=== PATIENT | male | born 1995 | race Caucasian/White ===

== ENCOUNTER 2017-03-25 17:09 | Emergency (ER) | payer MEDICAID ==
[~2017-03-25] VITALS: Ht 172.7 cm; Wt 81.6 kg
[2017-03-25 17:21] VITALS: Ht 172.7 cm; Wt 81.6 kg
[2017-03-25 19:31] LABS: PLATELET COUNT 277 x10^3mcL (130-400); RED CELL DISTRIBUTION WIDTH 13.1 % (11.5-14.5)
[2017-03-25 19:37] LABS: BASOPHIL % 0 % (0-2)
[2017-03-25 19:39] LABS: CALCIUM 9.6 mg/dL (8.5-10.1); CARBON DIOXIDE 24.6 mmol/L (21-32); CHLORIDE SERUM 103 mmol/L (98-107); CREATININE SERUM 0.8 mg/dL (0.7-1.3); GFR1 > 60 mL/min; GLUCOSE SERUM 130 mg/dL (74-106); POTASSIUM SERUM 3.5 mmol/L (3.5-5.1); SODIUM SERUM 139 mmol/L (136-145)
[2017-03-25 19:43] LABS: ALBUMIN 4.6 g/dL (3.4-5.0); ALKALINE PHOSPHATASE 75 U/L (46-116); ALT/SGPT 23 U/L (16-63); AMYLASE 86 U/L (25-115); AST/SGOT 19 U/L (15-37); BILIRUBIN TOTAL 0.5 mg/dL (0.20-1.00); LIPASE 105 IU/L (73-393)
[2017-03-25 19:44] LABS: TOTAL PROTEIN, SERUM 8.4 g/dL (6.4-8.2)
[2017-03-25 20:01] LABS: UA SPECIFIC GRAVITY 1.015 (1.005-1.035); microscopic required? YES; urine erythrocyte NEGATIVE (NEGATIVE)
[2017-03-25 20:10] LABS: AMPHETAMINE QUAL UR NONE DETECTED (NEG <=1000)
[2017-03-25 23:35] VITALS: BP 116/71
== END 2017-03-25 23:35 | disposition home or self-care (01) ==
LOC: ED 17:09
PROVIDERS: Emergency Medicine
DX: R11.10 Vomiting, unspecified (principal); R10.84 Generalized abdominal pain; F12.90 Cannabis use, unspecified, uncomplicated; F17.210 Nicotine dependence, cigarettes, uncomplicated; D72.829 Elevated white blood cell count, unspecified
CPT/HCPCS: 83880; J1630; J2060; J2405; J3490; J7030

== ENCOUNTER 2017-04-14 07:25 | Emergency (ER) | payer MEDICAID ==
[~2017-04-14] VITALS: Ht 172.7 cm; Wt 86.2 kg
[2017-04-14 07:29] VITALS: Ht 172.7 cm; Wt 86.2 kg
[2017-04-14 08:28] LABS: BASOPHIL % 0.5 % (0-2); PLATELET COUNT 240 x10^3mcL (130-400); RED CELL DISTRIBUTION WIDTH 13.4 % (11.5-14.5)
[2017-04-14 09:00] LABS: CALCIUM 9.6 mg/dL (8.5-10.1); CARBON DIOXIDE 27.5 mmol/L (21-32); CHLORIDE SERUM 103 mmol/L (98-107); GFR1 > 60 mL/min; GLUCOSE SERUM 115 mg/dL (74-106); POTASSIUM SERUM 4.4 mmol/L (3.5-5.1); SODIUM SERUM 141 mmol/L (136-145)
[2017-04-14 09:09] LABS: ALBUMIN 4.8 g/dL (3.4-5.0); ALKALINE PHOSPHATASE 68 U/L (46-116); ALT/SGPT 22 U/L (16-63); AST/SGOT 15 U/L (15-37); BILIRUBIN TOTAL 0.5 mg/dL (0.20-1.00); LIPASE 576 IU/L (73-393); TOTAL PROTEIN, SERUM 8.2 g/dL (6.4-8.2)
[2017-04-14 11:55] VITALS: BP 149/95
== END 2017-04-14 11:55 | disposition home or self-care (01) ==
LOC: ED 07:25
PROVIDERS: Emergency Medicine Emergency Medical Services
DX: K86.0 Alcohol-induced chronic pancreatitis (principal); K21.9 Gastro-esophageal reflux disease without esophagitis
CPT/HCPCS: J2270; J2405; J3490; J7030

== ENCOUNTER 2017-06-28 21:38 | Emergency (ER) | payer MEDICAID ==
[~2017-06-28] VITALS: Ht 170.2 cm; Wt 92.1 kg
[2017-06-28 21:40] VITALS: Ht 170.2 cm; Wt 92.1 kg
[2017-06-28 22:34] LABS: PLATELET COUNT 246 x10^3mcL (130-400); RED CELL DISTRIBUTION WIDTH 13.1 % (11.5-14.5)
[2017-06-28 22:37] LABS: CALCIUM 9.1 mg/dL (8.5-10.1); CARBON DIOXIDE 26.3 mmol/L (21-32); CHLORIDE SERUM 101 mmol/L (98-107); GFR1 > 60 mL/min; GLUCOSE SERUM 135 mg/dL (74-106); POTASSIUM SERUM 3.2 mmol/L (3.5-5.1); SODIUM SERUM 140 mmol/L (136-145)
[2017-06-28 22:40] LABS: BASOPHIL % 0 % (0-2)
[2017-06-28 22:41] LABS: ALBUMIN 4.2 g/dL (3.4-5.0); ALKALINE PHOSPHATASE 63 U/L (46-116); ALT/SGPT 21 U/L (16-63); AMYLASE 114 U/L (25-115); AST/SGOT 20 U/L (15-37); BILIRUBIN TOTAL 0.44 mg/dL (0.20-1.00); LIPASE 131 IU/L (73-393); TOTAL PROTEIN, SERUM 7.8 g/dL (6.4-8.2)
[2017-06-28 23:09] LABS: UA SPECIFIC GRAVITY 1.015 (1.005-1.035); microscopic required? YES; urine erythrocyte NEGATIVE (NEGATIVE)
[2017-06-28 23:29] LABS: AMPHETAMINE QUAL UR NONE DETECTED (NEG <=1000)
[2017-06-29 00:34] VITALS: BP 148/92
== END 2017-06-29 00:34 | disposition home or self-care (01) ==
LOC: ED 21:38
PROVIDERS: Emergency Medicine
DX: R10.84 Generalized abdominal pain (principal); R11.10 Vomiting, unspecified; D72.829 Elevated white blood cell count, unspecified; F12.90 Cannabis use, unspecified, uncomplicated; R11.2 Nausea with vomiting, unspecified
CPT/HCPCS: G0480; J1630; J2060; J7030

== ENCOUNTER 2017-10-04 21:09 | Emergency (ER) | payer OTHER ==
[~2017-10-04] VITALS: Ht 175.3 cm; Wt 90.3 kg
[2017-10-04 21:39] VITALS: Ht 175.3 cm; Wt 90.3 kg
[2017-10-04 22:46] LABS: BASOPHIL % 0.3 % (0-2); PLATELET COUNT 272 x10^3mcL (130-400); RED CELL DISTRIBUTION WIDTH 13.4 % (11.5-14.5)
[2017-10-04 22:57] LABS: CALCIUM 8.9 mg/dL (8.5-10.1); CARBON DIOXIDE 26.8 mmol/L (21-32); CHLORIDE SERUM 101 mmol/L (98-107); GFR1 > 60 mL/min; GLUCOSE SERUM 116 mg/dL (74-106); POTASSIUM SERUM 3.1 mmol/L (3.5-5.1); SODIUM SERUM 139 mmol/L (136-145)
[2017-10-04 23:01] LABS: ALBUMIN 4.7 g/dL (3.4-5.0); ALKALINE PHOSPHATASE 70 U/L (46-116); ALT/SGPT 22 U/L (16-63); AST/SGOT 21 U/L (15-37); BILIRUBIN TOTAL 1.2 mg/dL (0.20-1.00); LIPASE 85 IU/L (73-393)
[2017-10-04 23:02] LABS: TOTAL PROTEIN, SERUM 8.4 g/dL (6.4-8.2)
[2017-10-05 00:20] LABS: microscopic required? YES; urine erythrocyte TRACE (NEGATIVE)
[2017-10-05 02:18] VITALS: BP 158/67
== END 2017-10-05 02:27 | disposition home or self-care (01) ==
LOC: ED 21:09
PROVIDERS: Emergency Medicine
DX: T67.5XXA Heat exhaustion, unspecified, initial encounter (principal); X58.XXXA Exposure to other specified factors, initial encounter; Y93.89 Activity, other specified; Y92.89 Other specified places as the place of occurrence of the external cause; Y99.8 Other external cause status
CPT/HCPCS: J2405; J3475; J3490; J7030; Q0162

== ENCOUNTER 2017-11-05 16:33 | Emergency (ER) | payer OTHER ==
[~2017-11-05] VITALS: Ht 175.3 cm; Wt 89.8 kg
[2017-11-05 18:10] LABS: BASOPHIL % 0.2 % (0-2); PLATELET COUNT 277 x10^3mcL (130-400)
[2017-11-05 18:23] LABS: ALKALINE PHOSPHATASE 67 U/L (46-116); ALT/SGPT 12 U/L (16-63); AST/SGOT 18 U/L (15-37); BILIRUBIN TOTAL 1.17 mg/dL (0.20-1.00); CALCIUM 9.7 mg/dL (8.5-10.1); CARBON DIOXIDE 25.4 mmol/L (21-32); CHLORIDE SERUM 98 mmol/L (98-107); CREATININE SERUM 1.1 mg/dL (0.7-1.3); GFR1 > 60 mL/min; GLUCOSE SERUM 107 mg/dL (74-106); LIPASE 90 IU/L (73-393); SODIUM SERUM 136 mmol/L (136-145)
[2017-11-05 18:24] LABS: TOTAL PROTEIN, SERUM 8.7 g/dL (6.4-8.2)
[2017-11-05 18:26] LABS: POTASSIUM SERUM 2.9 mmol/L (3.5-5.1)
[2017-11-05 21:29] VITALS: BP 146/54
== END 2017-11-05 21:29 | disposition home or self-care (01) ==
LOC: ED 16:33
PROVIDERS: Emergency Medicine
DX: E87.6 Hypokalemia (principal); K29.70 Gastritis, unspecified, without bleeding; R03.0 Elevated blood-pressure reading, without diagnosis of hypertension; F12.929 Cannabis use, unspecified with intoxication, unspecified
CPT/HCPCS: J1200; J1630; J2765; J3475; J3480; J7030

== ENCOUNTER 2018-01-28 18:29 | Emergency (ER) | payer OTHER ==
[~2018-01-28] VITALS: Ht 175.3 cm; Wt 93.4 kg
[2018-01-28 18:34] VITALS: Ht 175.3 cm; Wt 93.4 kg
[2018-01-28 21:13] VITALS: BP 135/76
== END 2018-01-28 21:13 | disposition home or self-care (01) ==
LOC: ED 18:29
DX: R10.13 Epigastric pain (principal); R11.2 Nausea with vomiting, unspecified; K21.9 Gastro-esophageal reflux disease without esophagitis; F12.90 Cannabis use, unspecified, uncomplicated
CPT/HCPCS: J1885; Q0162

== ENCOUNTER 2018-03-02 20:40 | Emergency (ER) | payer OTHER ==
[2018-03-02 22:09] LABS: BASOPHIL % 0.1 % (0-2); PLATELET COUNT 282 x10^3mcL (130-400); RED CELL DISTRIBUTION WIDTH 13.6 % (11.5-14.5)
[2018-03-02 22:19] LABS: CALCIUM 9.3 mg/dL (8.5-10.1); CARBON DIOXIDE 29.1 mmol/L (21-32); CHLORIDE SERUM 98 mmol/L (98-107); CREATININE SERUM 1.1 mg/dL (0.7-1.3); GFR1 > 60 mL/min; GLUCOSE SERUM 108 mg/dL (74-106); POTASSIUM SERUM 3.5 mmol/L (3.5-5.1); SODIUM SERUM 137 mmol/L (136-145)
[2018-03-02 22:23] LABS: ALBUMIN 4.5 g/dL (3.4-5.0); ALKALINE PHOSPHATASE 62 U/L (46-116); ALT/SGPT 20 U/L (16-63); AMYLASE 104 U/L (25-115); AST/SGOT 18 U/L (15-37); BILIRUBIN TOTAL 0.7 mg/dL (0.20-1.00); LIPASE 101 IU/L (73-393)
[2018-03-02 22:27] LABS: TOTAL PROTEIN, SERUM 8.4 g/dL (6.4-8.2)
[2018-03-03 01:10] VITALS: BP 150/92
== END 2018-03-03 01:10 | disposition home or self-care (01) ==
LOC: ED 20:40
PROVIDERS: Emergency Medicine
DX: G43.A1 Cyclical vomiting, in migraine, intractable (principal); R10.13 Epigastric pain
CPT/HCPCS: C9113; J2405; J7030

== ENCOUNTER 2018-05-02 16:44 | Emergency (ER) | payer OTHER ==
[~2018-05-02] VITALS: Ht 175.3 cm; Wt 95.3 kg
[2018-05-02 17:24] VITALS: Ht 175.3 cm; Wt 95.3 kg
[2018-05-02 20:34] LABS: CALCIUM 10.1 mg/dL (8.5-10.1); CARBON DIOXIDE 22.8 mmol/L (21-32); CHLORIDE SERUM 97 mmol/L (98-107); GFR1 > 60 mL/min; GLUCOSE SERUM 118 mg/dL (74-106); POTASSIUM SERUM 3.7 mmol/L (3.5-5.1); SODIUM SERUM 134 mmol/L (136-145)
[2018-05-02 20:39] LABS: ALBUMIN 4.8 g/dL (3.4-5.0); ALKALINE PHOSPHATASE 73 U/L (46-116); ALT/SGPT 18 U/L (16-63); AMYLASE 104 U/L (25-115); AST/SGOT 19 U/L (15-37); BILIRUBIN TOTAL 0.6 mg/dL (0.20-1.00); LIPASE 117 IU/L (73-393)
[2018-05-02 20:42] LABS: TOTAL PROTEIN, SERUM 8.9 g/dL (6.4-8.2)
[2018-05-02 20:48] LABS: BASOPHIL % 0.6 % (0-2); PLATELET COUNT 203 x10^3mcL (130-400); RED CELL DISTRIBUTION WIDTH 13.5 % (11.5-14.5)
[2018-05-02 23:33] VITALS: BP 157/71
== END 2018-05-02 23:33 | disposition home or self-care (01) ==
LOC: ED 16:44
PROVIDERS: Emergency Medicine
DX: A08.4 Viral intestinal infection, unspecified (principal)
CPT/HCPCS: J1885; J2405; J7030

== ENCOUNTER 2018-06-17 07:56 | Emergency (ER) | payer OTHER ==
[~2018-06-17] VITALS: Ht 175.3 cm; Wt 89.8 kg
[2018-06-17 08:40] LABS: BASOPHIL % 0.3 % (0-2); PLATELET COUNT 196 x10^3mcL (130-400); RED CELL DISTRIBUTION WIDTH 13.9 % (11.5-14.5)
[2018-06-17 08:43] LABS: CALCIUM 9.1 mg/dL (8.5-10.1); CARBON DIOXIDE 25.6 mmol/L (21-32); CHLORIDE SERUM 98 mmol/L (98-107); CREATININE SERUM 1.1 mg/dL (0.7-1.3); GFR1 > 60 mL/min; GLUCOSE SERUM 110 mg/dL (74-106); POTASSIUM SERUM 3.1 mmol/L (3.5-5.1); SODIUM SERUM 136 mmol/L (136-145)
[2018-06-17 08:47] LABS: ALBUMIN 4.6 g/dL (3.4-5.0); ALKALINE PHOSPHATASE 63 U/L (46-116); ALT/SGPT 36 U/L (16-63); AMYLASE 73 U/L (25-115); AST/SGOT 96 U/L (15-37); LIPASE 91 IU/L (73-393)
[2018-06-17 08:48] LABS: TOTAL PROTEIN, SERUM 8.4 g/dL (6.4-8.2)
[2018-06-17 10:21] VITALS: BP 171/60
== END 2018-06-17 10:21 | disposition home or self-care (01) ==
LOC: ED 07:56
PROVIDERS: Specialist
DX: R10.13 Epigastric pain (principal); E87.6 Hypokalemia; R11.2 Nausea with vomiting, unspecified; K21.9 Gastro-esophageal reflux disease without esophagitis
CPT/HCPCS: J2405; J7030

== ENCOUNTER 2018-09-15 18:15 | Emergency (ER) | payer OTHER ==
[~2018-09-15] VITALS: Ht 180.3 cm; Wt 88.0 kg
[2018-09-15 18:20] VITALS: Ht 180.3 cm; Wt 88.0 kg
[2018-09-15 18:54] LABS: BASOPHIL % 0.1 % (0-2); PLATELET COUNT 304 x10^3mcL (130-400); RED CELL DISTRIBUTION WIDTH 13.7 % (11.5-14.5)
[2018-09-15 19:09] LABS: CALCIUM 10.1 mg/dL (8.5-10.1); CARBON DIOXIDE 28.4 mmol/L (21-32); CHLORIDE SERUM 102 mmol/L (98-107); GFR1 > 60 mL/min; GLUCOSE SERUM 106 mg/dL (74-106); POTASSIUM SERUM 3.7 mmol/L (3.5-5.1); SODIUM SERUM 143 mmol/L (136-145)
[2018-09-15 19:16] LABS: ALBUMIN 4.6 g/dL (3.4-5.0); ALKALINE PHOSPHATASE 67 U/L (46-116); ALT/SGPT 26 U/L (16-63); AST/SGOT 9 U/L (15-37); BILIRUBIN TOTAL 1.02 mg/dL (0.20-1.00); LIPASE 204 IU/L (73-393); TOTAL PROTEIN, SERUM 8.1 g/dL (6.4-8.2)
[2018-09-15 20:03] VITALS: BP 126/80
[2018-09-15 20:10] LABS: AMPHETAMINE QUAL UR NONE DETECTED (See below)
== END 2018-09-15 20:03 | disposition home or self-care (01) ==
LOC: ED 18:15
DX: F12.188 Cannabis abuse with other cannabis-induced disorder (principal); F17.200 Nicotine dependence, unspecified, uncomplicated; K21.9 Gastro-esophageal reflux disease without esophagitis
CPT/HCPCS: 36415; 99406

== ENCOUNTER 2019-06-04 17:51 | Emergency (ER) | payer OTHER ==
[~2019-06-04] VITALS: Ht 175.3 cm; Wt 93.9 kg
[2019-06-04 17:54] VITALS: Ht 175.3 cm; Wt 93.9 kg
[2019-06-04 18:49] LABS: BASOPHIL % 0.1 % (0-2); PLATELET COUNT 305 x10^3mcL (130-400)
[2019-06-04 18:55] LABS: CALCIUM 9.7 mg/dL (8.5-10.1); CARBON DIOXIDE 26.6 mmol/L (21-32); CHLORIDE SERUM 102 mmol/L (98-107); GFR1 > 60 mL/min; GLUCOSE SERUM 149 mg/dL (74-106); POTASSIUM SERUM 4.2 mmol/L (3.5-5.1); SODIUM SERUM 140 mmol/L (136-145)
[2019-06-04 19:00] LABS: ALBUMIN 4.9 g/dL (3.4-5.0); ALKALINE PHOSPHATASE 69 U/L (46-116); ALT/SGPT 22 U/L (16-63); AST/SGOT 14 U/L (15-37); BILIRUBIN TOTAL 0.7 mg/dL (0.20-1.00); LIPASE 82 IU/L (73-393)
[2019-06-04 20:47] VITALS: BP 145/84
== END 2019-06-04 20:47 | disposition home or self-care (01) ==
LOC: ED 17:51
PROVIDERS: Emergency Medicine
DX: F12.188 Cannabis abuse with other cannabis-induced disorder (principal); K21.9 Gastro-esophageal reflux disease without esophagitis
CPT/HCPCS: J0780; J7030

== ENCOUNTER 2019-09-13 18:11 | Emergency (ER) | payer OTHER ==
[~2019-09-13] VITALS: Ht 175.3 cm; Wt 89.9 kg
[2019-09-13 18:44] VITALS: Ht 175.3 cm; Wt 89.9 kg
[2019-09-13 19:43] LABS: ALBUMIN 4.7 g/dL (3.4-5.0); ALKALINE PHOSPHATASE 61 U/L (46-116); ALT/SGPT 24 U/L (16-63); AST/SGOT 21 U/L (15-37); BILIRUBIN TOTAL 0.6 mg/dL (0.20-1.00); CALCIUM 9.6 mg/dL (8.5-10.1); CARBON DIOXIDE 28.4 mmol/L (21-32); CHLORIDE SERUM 98 mmol/L (98-107); GFR1 > 60 mL/min; GLUCOSE SERUM 123 mg/dL (74-106); LIPASE 96 IU/L (73-393); POTASSIUM SERUM 3.8 mmol/L (3.5-5.1); SODIUM SERUM 138 mmol/L (136-145)
[2019-09-13 19:44] LABS: TOTAL PROTEIN, SERUM 8.5 g/dL (6.4-8.2)
[2019-09-13 19:45] LABS: BASOPHIL % 0 % (0-2); PLATELET COUNT 287 x10^3mcL (130-400); RED CELL DISTRIBUTION WIDTH 13.9 % (11.5-14.5)
[2019-09-13 21:20] VITALS: BP 138/89
== END 2019-09-13 21:20 | disposition home or self-care (01) ==
LOC: ED 18:11
PROVIDERS: Emergency Medicine
DX: R10.13 Epigastric pain (principal); R10.11 Right upper quadrant pain; R19.7 Diarrhea, unspecified; R11.10 Vomiting, unspecified; K21.9 Gastro-esophageal reflux disease without esophagitis
CPT/HCPCS: 36415; Q0092; Q0162

== ENCOUNTER 2019-11-13 13:45 | Emergency (ER) | payer OTHER ==
[~2019-11-13] VITALS: Ht 172.7 cm; Wt 95.3 kg
[2019-11-13 13:49] VITALS: Ht 172.7 cm; Wt 95.3 kg
[2019-11-13 14:21] LABS: BASOPHIL % 0.2 % (0-2); PLATELET COUNT 272 x10^3mcL (130-400); RED CELL DISTRIBUTION WIDTH 13.5 % (11.5-14.5)
[2019-11-13 14:43] LABS: CALCIUM 9.7 mg/dL (8.5-10.1); CARBON DIOXIDE 28.2 mmol/L (21-32); CHLORIDE SERUM 96 mmol/L (98-107); GFR1 > 60 mL/min; GLUCOSE SERUM 102 mg/dL (74-106); POTASSIUM SERUM 3.3 mmol/L (3.5-5.1); SODIUM SERUM 135 mmol/L (136-145)
[2019-11-13 15:10] VITALS: BP 126/96
[2019-11-13 15:17] LABS: ALBUMIN 4.8 g/dL (3.4-5.0); ALKALINE PHOSPHATASE 56 U/L (46-116); ALT/SGPT 21 U/L (16-63); AST/SGOT 22 U/L (15-37); BILIRUBIN TOTAL 0.9 mg/dL (0.20-1.00)
[2019-11-13 15:18] LABS: TOTAL PROTEIN, SERUM 8.7 g/dL (6.4-8.2)
== END 2019-11-13 15:10 | disposition home or self-care (01) ==
LOC: ED 13:45
PROVIDERS: Emergency Medicine
DX: T67.5XXA Heat exhaustion, unspecified, initial encounter (principal); K21.9 Gastro-esophageal reflux disease without esophagitis; X58.XXXA Exposure to other specified factors, initial encounter; Y93.89 Activity, other specified; Y92.89 Other specified places as the place of occurrence of the external cause; Y99.8 Other external cause status
CPT/HCPCS: J2405; J7030

== ENCOUNTER 2019-11-16 15:24 | Emergency (ER) | payer OTHER ==
[~2019-11-16] VITALS: Ht 177.8 cm; Wt 88.5 kg
[2019-11-16 15:43] VITALS: Ht 177.8 cm; Wt 88.5 kg
[2019-11-16 16:41] LABS: BASOPHIL % 0.1 % (0-2); PLATELET COUNT 263 x10^3mcL (130-400); RED CELL DISTRIBUTION WIDTH 13.2 % (11.5-14.5)
[2019-11-16 16:43] LABS: CALCIUM 9.8 mg/dL (8.5-10.1); CARBON DIOXIDE 27.8 mmol/L (21-32); CHLORIDE SERUM 99 mmol/L (98-107); GFR1 > 60 mL/min; GLUCOSE SERUM 106 mg/dL (74-106); POTASSIUM SERUM 3.7 mmol/L (3.5-5.1); SODIUM SERUM 137 mmol/L (136-145)
[2019-11-16 16:47] LABS: ALBUMIN 4.8 g/dL (3.4-5.0); ALKALINE PHOSPHATASE 56 U/L (46-116); ALT/SGPT 21 U/L (16-63); AST/SGOT 24 U/L (15-37); BILIRUBIN TOTAL 1.1 mg/dL (0.20-1.00)
[2019-11-16 16:57] LABS: TOTAL PROTEIN, SERUM 8.5 g/dL (6.4-8.2)
[2019-11-16 18:19] LABS: UA SPECIFIC GRAVITY 1.025 (1.005-1.035); microscopic required? YES; urine erythrocyte 3+ (NEGATIVE)
[2019-11-16 19:05] VITALS: BP 121/70
== END 2019-11-16 19:05 | disposition home or self-care (01) ==
LOC: ED 15:24
PROVIDERS: Emergency Medicine
DX: K29.70 Gastritis, unspecified, without bleeding (principal); N39.0 Urinary tract infection, site not specified; F12.188 Cannabis abuse with other cannabis-induced disorder; K21.9 Gastro-esophageal reflux disease without esophagitis
CPT/HCPCS: 87491; 87591; J1630; J2405; J3490; J7030

== ENCOUNTER 2019-12-23 13:31 | Emergency (ER) | payer SELFPAY ==
[~2019-12-23] VITALS: Ht 172.7 cm; Wt 99.8 kg
[2019-12-23 13:41] VITALS: Ht 172.7 cm; Wt 99.8 kg
[2019-12-23 16:30] VITALS: BP 124/75
== END 2019-12-23 16:30 | disposition home or self-care (01) ==
LOC: ED 13:31
DX: E86.0 Dehydration (principal); K21.9 Gastro-esophageal reflux disease without esophagitis
CPT/HCPCS: J2405; J7030

== ENCOUNTER 2019-12-26 21:42 | Emergency (ER) | payer SELFPAY ==
[~2019-12-26] VITALS: Ht 172.7 cm; Wt 88.5 kg
[2019-12-26 21:46] VITALS: Ht 172.7 cm; Wt 88.5 kg
[2019-12-26 23:15] VITALS: BP 163/101
== END 2019-12-26 23:15 | disposition home or self-care (01) ==
LOC: ED 21:42
DX: E86.0 Dehydration (principal)
CPT/HCPCS: J1885; J2765; J7030